=== PATIENT | female | born 1970 | race Caucasian/White ===

== ENCOUNTER 2018-08-19 09:19 | Emergency (ER) | payer OTHER ==
[2018-08-19] MEDS ORDERED: NA CHLORIDE 0.9% 1,000 ML ONE (09:50)
[2018-08-19] MEDS ORDERED: ADENOSINE 6 MG/ 2ML VIAL IV ONE (09:50)
[2018-08-19] MEDS ORDERED: METOPROLOL TARTRATE 5 MG/5 ML INJ IV ONE (09:57)
[2018-08-19 10:09] LABS: Absolute Lymphocytes (CBC) 1.8 K/uL (0.7-4.9); Basophils % 0.5 % (0-1.3); Eosinophils % 3.9 % (0-4.4); Hematocrit 43.4 % (36.0-45.0); Lymphocytes % 35.7 % (15.3-44.8); MPV 9.2 fL (7.6-11.3); Monocytes % 7.8 % (3.3-12.3); RBC Red Blood Cell Count 4.68 M/uL (3.86-4.86)
[2018-08-19 10:13] LABS: Protime INR 1.01
[2018-08-19 10:26] LABS: ALT/SGPT 19 U/L (12-78); AST/SGOT 16 U/L (15-37); Albumin 4.1 g/dL (3.4-5.0); Alkaline Phosphatase 72 U/L (45-117); BUN Blood Urea Nitrogen 14 mg/dL (7-18); Bicarbonate 25 mmol/L (21-32); Bilirubin Direct 0.2 mg/dL (0-0.2); Bilirubin Total 0.6 mg/dL (0.2-1.0); Glucose Level 117 mg/dL (74-106); Magnesium 2.1 mg/dL (1.8-2.4); NT PRO-BNP 26 pg/mL (<125); Potassium 3.9 mmol/L (3.5-5.1); Protein, Total 7.9 g/dL (6.4-8.2); Sodium Level 141 mmol/L (136-145); Troponin (Emerg Dept Use Only) < 0.02 ng/mL (0.0-0.045)
--- NOTE | 2018-08-19 10:27 | RAD REPORT ---
EXAM DESCRIPTION: RAD - Chest Single View - 08/19/2018 10:20 am CLINICAL HISTORY: Chest pain;Palpitations Chest pain. COMPARISON: CHEST PA AND LAT 2 VIEW dated 04/30/2012 FINDINGS: Portable technique limits examination quality. The lungs are grossly clear. The heart is normal in size. No displaced fractures. IMPRESSION: No acute intrathoracic process suspected.
--- NOTE | 2018-08-19 10:48 | ER ---
Nurse's Notes [facility] Name: Felicia Arizmendi Age: 48 yrs Sex: Female : 1970 Arrival Date: 08/19/2018 Time: 09:21 Bed 3 Private MD: Diagnosis: Supraventricular tachycardia;Chronic kidney disease, stage 3 (moderate) Presentation: 08/19 09:21 Presenting complaint: Sudden onset chest tightness, SOB, and palpitations while hb standing at work today at 0815. BP 116/62, HR 188. Transition of care: patient was not received from another setting of care. Onset of symptoms was August 19, 2018. Risk Assessment: Do you want to hurt yourself or someone else? Patient reports no desire to harm self or others. Care prior to arrival: None. 09:21 Method Of Arrival: Ambulatory hb 09:21 Acuity: EVE 2 hb 09:35 Acuity: EVE 1 sv 10:00 Initial Sepsis Screen: Does the patient meet any 2 criteria? HR > 90 bpm. No. Patient's sv initial sepsis screen is negative. Does the patient have a suspected source of infection? No. Patient's initial sepsis screen is negative. 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 - Hysterectomy sv Historical: - Allergies: 09:23 No Known Allergies; hb - Home Meds: 10:09 B complex-minerals Oral [Active]; duloxetine 60 mg Oral cpDR 1 cap once daily [Active]; jr8 hylands and magnesium [Active]; ranitidine HCl 150 mg Oral tab 1 tab once daily [Active]; trubiotics, claritin, [Active]; Zinc Sulfate Oral [Active]; oxybutynin chloride 10 mg Oral tr24 1 tab once daily [Active]; alprazolam 0.5 mg Oral tab as needed [Active]; zyzal [Active]; biotin oral oral [Active]; simvastatin 20 mg Oral tab 1 tab once daily [Active]; phentermine 37.5 mg oral tab 1 tab once daily [Active]; - PMHx: 09:58 bladder control; GERD; hot flashes; shingles; sv - PSHx: 09:58 Tubal ligation; Uterine ablation; Colpsoscopy; Cryo sx; Hysterectomy; LEEP procedure; sv - Immunization history:: Adult Immunizations up to date. - Social history:: Smoking status: Patient/guardian denies using tobacco. - Ebola Screening: : No symptoms or risks identified at this time. Screenin:01 Abuse screen: Denies threats or abuse. Denies injuries from another. Nutritional sv screening: No deficits noted. Tuberculosis screening: No symptoms or risk factors identified. Fall Risk None identified. Assessment: 09:39 General: Appears in no apparent distress. uncomfortable, well groomed, well developed, sv Behavior is cooperative, appropriate for age, anxious. Pain: Denies pain. Neuro: Level of Consciousness is awake, alert, obeys commands, Oriented to person, place, time, situation, Moves all extremities. Full function Gait is steady. Cardiovascular: Patient's skin is warm and dry. Rhythm is SVT. Cardiovascular: Reports palpitations, shortness of breath, chest tightness. Respiratory: Airway is patent Respiratory effort is even, unlabored, Respiratory pattern is regular, symmetrical. Derm: Skin is pink, warm \T\ dry. 10:10 Reassessment: Patient appears in no apparent distress at this time. Patient and/or sv family updated on plan of care and expected duration. Pain level reassessed. Patient is alert, oriented x 3, equal unlabored respirations, skin warm/dry/pink. Patient states symptoms have improved. 10:58 Reassessment: pt ambulatory even steady gait to the restroom, and back in exam room at this time, no problems encountered, pt reports feeling good, pt to dispo to home at this time. Vital Signs: 09:22 BP 108 / 85; Pulse 176; Resp 16; Pulse Ox 97% on R/A; Weight 83.46 kg; Height 5 ft. 6 hb in. (167.64 cm); Pain 5/10; 09:59 BP 115 / 84; Pulse 84 MON; Resp 18; Pulse Ox 100% on R/A; sv 11:00 BP 111 / 77; Pulse 77 MON; Resp 16; Pulse Ox 99% on R/A; sv 09:22 Body Mass Index 29.70 (83.46 kg, 167.64 cm) hb 09:59 Sinus Rhythm sv 11:00 Sinus Rhythm sv ED Course: 09:21 Patient arrived in ED. hb 09:22 Triage completed. hb 09:23 Arm band placed on. hb 09:24 Mike Crane PA is PHCP. jr8 09:24 Otto Leos MD is Attending Physician. jr8 09:30 monitor worker on. Pulse ox on. NIBP on. sv 09:35 Inserted saline lock: 20 gauge in left antecubital area, using aseptic technique. sv ,using aseptic technique. done by Denise LUTZ Blood collected. 09:36 Aparna Gallegos RN is Primary Nurse. sv 09:39 Assist provider with cardioversion for treatment of SVT Set up for procedure. Performed sv by Miek GONZALEZ Monitored with cardiac cath technician, pulse ox, Post procedure rhythm is sinus rhythm. Patient tolerated well. Adenosine used.. Oxygen administration via nasal cannula \T\ 2L/min. 10:01 Patient has correct armband on for positive identification. Bed in low position. Call sv light in reach. 10:15 X-ray(s) taken. sv 10:20 Awaiting lab results, Awaiting radiology results. sv 10:20 XRAY Chest (1 view) In Process Unspecified. EDMS 10:47 Jelani Rey MD is Referral Physician. jr8 10:47 Elissa Yap MD is Referral Physician. jr8 11:08 IV discontinued, intact, bleeding controlled, No redness/swelling at site. Pressure sv dressing applied. Administered Medications: 09:39 Drug: Adenosine 12 mg Route: IVP; Site: left antecubital; tr5 09:58 Follow up: Response: No adverse reaction sv 09:41 Drug: Lopressor 5 mg Route: IVP; Site: left antecubital; tr5 09:58 Follow up: Response: No adverse reaction sv Outcome: 10:48 Discharge ordered by . jr8 11:08 Discharged to home ambulatory, with family. sv 11:08 Condition: stable 11:08 Discharge instructions given to patient, family, Instructed on discharge instructions, follow up and referral plans. Demonstrated understanding of instructions, follow-up care. 11:08 Patient left the ED. sv Signatures: Dispatcher [employer] EDNE Aparna Gallegos RN RN sv Gay, Steven, RN RN sg Roszak, Josh, PA PA jr8 Denise Rodriguez RN RN hb Rodriguez, Tommie, RN RN tr5 Corrections: (The following items were deleted from the chart) 09:25 09:22 BP 108 / 85; Pulse 17bpm; Resp 16bpm; Pulse Ox 97% RA; 83.46 kg; Height 5 ft. 6 hb in.; BMI: 29.7; Pain 5/10; hb
--- NOTE | 2018-08-19 10:48 | EDPHYS ---
Physician Documentation [facility] Name: Felicia Arizmendi Age: 48 yrs Sex: Female : 1970 Arrival Date: 08/19/2018 Time: 09:21 Bed 3 Private MD: ED Physician Otto Leos HPI: 08/19 09:49 This 48 yrs old Female presents to ER via Ambulatory with complaints of jr8 Palpitations, Chest Tightness, Shortness Of Breath. 09:49 The patient presents with a history of heart racing. Context: The symptoms occur at jr8 rest. Onset: The symptoms/episode began/occurred acutely, today. Duration: The patient or guardian reports a single episode, that is still ongoing. Modifying factors: The symptoms are aggravated by nothing. The symptoms are alleviated by nothing. Associated signs and symptoms: Pertinent positives: SOB, near-syncope. Severity of symptoms: At their worst the symptoms were moderate in the emergency department the symptoms are unchanged. The patient has not experienced similar symptoms in the past. The patient has not recently seen a physician. Patient stated while at work started to feel dizzy and had palpitations that made her feel like she was going to pass out. 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 Stated that her heart rate was 180. 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 - Hysterectomy sv Historical: - Allergies: 09:23 No Known Allergies; hb - Home Meds: 10:09 B complex-minerals Oral [Active]; duloxetine 60 mg Oral cpDR 1 cap once daily [Active]; jr8 hylands and magnesium [Active]; ranitidine HCl 150 mg Oral tab 1 tab once daily [Active]; trubiotics, claritin, [Active]; Zinc Sulfate Oral [Active]; oxybutynin chloride 10 mg Oral tr24 1 tab once daily [Active]; alprazolam 0.5 mg Oral tab as needed [Active]; zyzal [Active]; biotin oral oral [Active]; simvastatin 20 mg Oral tab 1 tab once daily [Active]; phentermine 37.5 mg oral tab 1 tab once daily [Active]; - PMHx: 09:58 bladder control; GERD; hot flashes; shingles; sv - PSHx: 09:58 Tubal ligation; Uterine ablation; Colpsoscopy; Cryo sx; Hysterectomy; LEEP procedure; sv - Immunization history:: Adult Immunizations up to date. - Social history:: Smoking status: Patient/guardian denies using tobacco. - Ebola Screening: : No symptoms or risks identified at this time. ROS: 09:49 Eyes: Negative for injury, pain, redness, and discharge, ENT: Negative for injury, jr8 pain, and discharge, Neck: Negative for injury, pain, and swelling, Abdomen/GI: Negative for abdominal pain, nausea, vomiting, diarrhea, and constipation, Back: Negative for injury and pain, MS/Extremity: Negative for injury and deformity, Skin: Negative for injury, rash, and discoloration. 09:49 Cardiovascular: Positive for palpitations, Negative for chest pain, edema, orthopnea. 09:49 Respiratory: Positive for shortness of breath. 09:49 Neuro: Positive for dizziness, near syncope, Negative for altered mental status, gait disturbance, headache, hearing loss, loss of consciousness, numbness, seizure activity, speech changes, syncope, tingling, tinnitus, tremor, visual changes, weakness. Exam: 09:49 Eyes: Pupils equal round and reactive to light, extra-ocular motions intact. Lids and jr8 lashes normal. Conjunctiva and sclera are non-icteric and not injected. Cornea within normal limits. Periorbital areas with no swelling, redness, or edema. ENT: Nares patent. No nasal discharge, no septal abnormalities noted. Tympanic membranes are normal and external auditory canals are clear. Oropharynx with no redness, swelling, or masses, exudates, or evidence of obstruction, uvula midline. Mucous membranes moist. Neck: Trachea midline, no thyromegaly or masses palpated, and no cervical lymphadenopathy. Supple, full range of motion without nuchal rigidity, or vertebral point tenderness. No Meningismus. Respiratory: Lungs have equal breath sounds bilaterally, clear to auscultation and percussion. No rales, rhonchi or wheezes noted. No increased work of breathing, no retractions or nasal flaring. Abdomen/GI: Soft, non-tender, with normal bowel sounds. No distension or tympany. No guarding or rebound. No evidence of tenderness throughout. Back: No spinal tenderness. No costovertebral tenderness. Full range of motion. Skin: Warm, dry with normal turgor. Normal color with no rashes, no lesions, and no evidence of cellulitis. MS/ Extremity: Pulses equal, no cyanosis. Neurovascular intact. Full, normal range of motion. Neuro: Awake and alert, GCS 15, oriented to person, place, time, and situation. Cranial nerves II-XII grossly intact. Motor strength 5/5 in all extremities. Sensory grossly intact. Cerebellar exam normal. Normal gait. 09:49 Cardiovascular: Rate: tachycardic, actual rate is 170 bpm, Rhythm: irregular, Pulses: Pulses are 1+ in right radial artery and left radial artery. Edema: is not appreciated, JVD: is not appreciated. 09:49 ECG was reviewed by the Attending Physician. 09:53 ECG was reviewed by the Attending Physician. jr8 Vital Signs: 09:22 BP 108 / 85; Pulse 176; Resp 16; Pulse Ox 97% on R/A; Weight 83.46 kg; Height 5 ft. 6 hb in. (167.64 cm); Pain 5/10; 09:59 BP 115 / 84; Pulse 84 MON; Resp 18; Pulse Ox 100% on R/A; sv 11:00 BP 111 / 77; Pulse 77 MON; Resp 16; Pulse Ox 99% on R/A; sv 09:22 Body Mass Index 29.70 (83.46 kg, 167.64 cm) hb 09:59 Sinus Rhythm sv 11:00 Sinus Rhythm sv MDM: 09:24 Patient medically screened. jr8 10:43 Data reviewed: vital signs, nurses notes, lab test result(s), EKG, radiologic studies, jr8 plain films. Data interpreted: Pulse oximetry: on room air is 100 %. Interpretation: normal. Counseling: I had a detailed discussion with the patient and/or guardian regarding: the historical points, exam findings, and any diagnostic results supporting the discharge/admit diagnosis, lab results, radiology results, the need for outpatient follow up, a break off worker, Nephrology , to return to the emergency department if symptoms worsen or persist or if there are any questions or concerns that arise at home. Response to treatment: the patient's symptoms have resolved after treatment. ED course: Discussed with patient that her GFR is decreased. Recommended f/u with Oyster Bed Worker at this point as this is not the first time this has been brought to her attention. Otherwise No other acute lab abnormalities. Patient will also be following up with Cardiology in next day or so for SVT episode. Discussed needing to stop the dietary supplements and caffeine for now. No BB use at this time. If worse to come back. Patient good with plan and will f/u . 08/19 09:45 Order name: Basic Metabolic Panel; Complete Time: 10:32 tr5 08/19 09:45 Order name: CBC with Diff; Complete Time: 10:25 tr5 08/19 09:45 Order name: LFT's; Complete Time: 10:32 tr5 08/19 09:45 Order name: Magnesium; Complete Time: 10:32 tr5 08/19 09:45 Order name: NT PRO-BNP; Complete Time: 10:32 tr5 08/19 09:45 Order name: PT-INR; Complete Time: 10:25 tr5 08/19 09:24 Order name: EKG - Nurse/Tech; Complete Time: 09:59 jr8 08/19 09:24 Order name: EKG; Complete Time: 09:25 jr8 08/19 09:45 Order name: Troponin (emerg Dept Use Only); Complete Time: 10:32 tr5 08/19 09:45 Order name: XRAY Chest (1 view); Complete Time: 10:32 tr5 08/19 09:45 Order name: EKG; Complete Time: 09:46 tr5 08/19 09:45 Order name: Cardiac monitoring; Complete Time: 09:59 tr5 08/19 09:45 Order name: EKG - Nurse/Tech; Complete Time: 09:59 tr5 08/19 09:45 Order name: IV Saline Lock; Complete Time: 09:59 tr5 08/19 09:45 Order name: Labs collected and sent; Complete Time: 09:59 tr5 08/19 09:45 Order name: O2 Per Protocol; Complete Time: 09:59 tr5 08/19 09:45 Order name: O2 Sat Monitoring; Complete Time: 09:59 tr5 EC:49 Rate is 165 beats/min. Rhythm is irregular, SVT. QRS [place] is Normal. QRS interval is jr8 normal at 98 msec. No Q waves. T waves are Normal. No ST changes noted. Clinical impression: SVT. Interpreted by me. Reviewed by me. 09:53 Rate is 88 beats/min. Rhythm is regular, Normal Sinus Rhythm. QRS [place] is Normal. [place] jr8 interval is normal at 130 msec. QRS interval is normal at 66 msec. QT interval is normal at 406 msec. No Q waves. T waves are Flattened in leads II, III, aVF, V3, V4, V5, V6. No ST changes noted. Clinical impression: NSR w/ Non-specific ST/T Changes. Interpreted by me. Reviewed by me. Administered Medications: 09:39 Drug: Adenosine 12 mg Route: IVP; Site: left antecubital; tr5 09:58 Follow up: Response: No adverse reaction sv 09:41 Drug: Lopressor 5 mg Route: IVP; Site: left antecubital; tr5 09:58 Follow up: Response: No adverse reaction sv Disposition: 15:49 Co-signature as Attending Physician, Otto Leos MD. rn Disposition: 08/19/18 10:48 Discharged to Home. Impression: Supraventricular tachycardia, Chronic kidney disease, stage 3 (moderate). - Condition is Stable. - Discharge Instructions: Pharmaceutical Cardioversion, Paroxysmal Supraventricular Tachycardia, Chronic Kidney Disease, Adult. - Work release form, Medication Reconciliation Form, Thank You Letter, Antibiotic Education, Prescription Opioid Use form. - Follow up: Jelani Rey MD; When: 24 Hours; Reason: Recheck today's complaints, Continuance of care, Re-evaluation by your physician. Follow up: Elissa Yap MD; When: 2 - 3 days; Reason: Recheck today's complaints, Continuance of care, Re-evaluation by your physician. - Problem is new. - Symptoms have improved. Signatures: Dispatcher [employer] Aparna Dave RN RN sv Nieto, Roman, MD MD rn Roszak, Josh, PA PA jr8 Denise Rodriguez RN RN hb Rodriguez, Tommie RN RN tr5 Corrections: (The following items were deleted from the chart) 11:08 10:48 08/19/2018 10:48 Discharged to Home. Impression: Supraventricular tachycardia; sv Chronic kidney disease, stage 3 (moderate). Condition is Stable. Forms are Medication Reconciliation Form, Thank You Letter, Antibiotic Education, Prescription Opioid Use. Follow up: Jelani Rey; When: 24 Hours; Reason: Recheck today's complaints, Continuance of care, Re-evaluation by your physician. Follow up: Elissa Yap; When: 2 - 3 days; Reason: Recheck today's complaints, Continuance of care, Re-evaluation by your physician. Problem is new. Symptoms have improved. jr8
--- NOTE | 2018-08-19 11:07 | EKG ---
Test Date: 2018-08-19 Test Time: 09:30:47 Academic Hospitalist: RAGINI MEASUREMENT RESULTS: Intervals: Rate: 165 CT: QRSD: 98 QT: 272 QTc: 450 [place]: P: CT: QRS: 35 T: -29 INTERPRETIVE STATEMENTS: Supraventricular tachycardia Nonspecific ST and T wave abnormality Abnormal ECG Compared to ECG 04/30/2012 11:53:19 ST (T wave) deviation now present Sinus rhythm no longer present T-wave abnormality no longer present Electronically Signed On 08-19-18 11:06:44 CDT by Onel Mo
--- NOTE | 2018-08-19 11:07 | EKG ---
Test Date: 2018-08-19 Test Time: 09:45:37 Senior Report Developer: RAGINI MEASUREMENT RESULTS: Intervals: Rate: 88 AL: 130 QRSD: 66 QT: 336 QTc: 406 [place]: P: 48 AL: 130 QRS: 17 T: 12 INTERPRETIVE STATEMENTS: Normal sinus rhythm Nonspecific ST and T wave abnormality Abnormal ECG Compared to ECG 08/19/2018 09:30:47 Supraventricular tachycardia no longer present ST (T wave) deviation still present Electronically Signed On 08-19-18 11:06:41 CDT by Onel Mo
== END 2018-08-19 11:08 | disposition home or self-care (01) ==
LOC: ER 09:19
DX: I47.1 Supraventricular tachycardia (principal); N18.3 Chronic kidney disease, stage 3 (moderate); K21.9 Gastro-esophageal reflux disease without esophagitis
CPT/HCPCS: 36415; 71045; 80048; 80076; 83735; 83880; 84484; 85025; 85610; 92960; 93005; 96374; 96375; 99291; J0153; J7030

== ENCOUNTER 2023-03-14 21:01 | Emergency (ER) | payer BC ==
--- OUTSIDE RECORDS SUMMARY | 2023-03-14 21:04 | XMS REPORT | Continuity of Care Document ---
Author Name Unknown Address [address] [place] [address] [facility] thconnect Address [address] [place] [address] Care Team Providers Care Funeral Arranger Name Role Phone Tracy Dumas Primary Care Physician [phone] Huseyin Hannah Attending Clinician Unavailable Valentina De La Fuente Attending Clinician [phone] Sarah Leung MD Attending Clinician [phone] Doctor Unassigned, Moquino Attending Clinician U navailable [email or web address] Attending Clinician Unavaila SARAH Meza Attending Clinician UnavailVALENTINA [place] Attending Clinician Unavailable Anna Baca Attending Clinician [phone] ANNA CRAWFORD Attending Clinician Unavailable Saritha Doss Admitting Clinician Unavailable [email or web address] Admitting Clinician Unavailjenelle aldridge Payers Payer Name Policy Type Policy Number Effective Date Expirati on Date Source [employer]ETNA [id number] 2020 00:00:00 Problems Condition Name Condition Details Condition Category Status Onset Date Resolution Date Last Treatment Date Treating Clinician Comments Source No known active problems No known active problems Disease [facility] Allergies, Adverse Reactions, Alerts Allergy Name Allergy Type Status Severity Reaction(s) Onset Date Inactive Date Treating Clinician Comments Source Amoxicil jeanna Propensi ty to adverse reaction s Active Rash 03-15 00:00: 00 [facility] cephalex in DA Active [place] 03-01 00:00: 00 [facility] amoxicil jeanna DA Active [place] 03-01 00:00: 00 [facility] cef[facility] [place] 03-01 00:00: 00 [facility] cephalex in DA Active [place] RASH, NAUSEA 03-01 00:00: 00 [facility] amoxicil jeanna DA Active [place] RASH, NAUSEA 03-01 00:00: 00 [facility] cefazoli n DA Active [place] RASH, NAUSEA 03-01 00:00: 00 [facility] No Known Allergie s DA Active U 02-27 00:00: 00 [facility] code[facility] DA Active [place] 02-27 00:00: 00 [facility] No Known Allergie s DA Active U 02-27 00:00: 00 [facility] codeine DA Active [place] UNKNOWN 02-27 00:00: 00 [facility] Social History Social Habit Start Date Stop Date Quantity Comments Source Exposure to SARS-CoV-2 (event) 2021-07-01 00:00:00 2021-07-11 12:25:00 Not sure [facility] Alcohol intake 2021-07-11 00:00:00 2021-07-11 00:00:00 Lifetime non-drinker (finding) [facility] Tobacco use and exposure 2021-06-06 00:00:00 2021-06-06 00:00:00 Smokeless tobacco non-user [facility] Sex Assigned At 1970 00:00:00 1970 00:00:00 [facility] Smoking Status Start Date Stop Date Source Never smoked tobacco [facility] Medications Ordered Medication Name Filled Medication Name Start Date Stop Date Current Medication? Ordering Clinician Indication Dosage Frequency Signature (SIG) Comments Components Source MELOXICAM 7.5 mg tablet 07-30 00:00: 00 Yes [id number] TAKE 1 TABLET BY MOUTH EVERY DAY [facility] MELOXICAM 7.5 mg tablet 2021-02 00:00: 00 Yes [id number] TAKE 1 TABLET BY MOUTH EVERY DAY [facility] MELOXICAM 7.5 mg tablet 2021-02 00:00: 00 Yes [id number] TAKE 1 TABLET BY MOUTH EVERY DAY [facility] MELOXICAM 7.5 mg tablet 2021-02 00:00: 00 Yes [id number] TAKE 1 TABLET BY MOUTH EVERY DAY [facility] MELOXICAM 7.5 mg tablet 2021-02 00:00: 00 07-30 00:00 :00 No [id number] TAKE 1 TABLET BY MOUTH EVERY DAY [facility] MELOXICAM 7.5 mg tablet 2021-02 00:00: 00 Yes [id number] 7.5mg TAKE 1 TABLET BY MOUTH DAILY [facility] MELOXICAM 7.5 mg tablet 2021-02 00:00: 00 Yes [id number] 7.5mg TAKE 1 TABLET BY MOUTH DAILY [facility] MELOXICAM 7.5 mg tablet 2021-02 00:00: 00 02-04 00:00 :00 No [id number] 7.5mg TAKE 1 TABLET BY MOUTH DAILY [facility] MELOXICAM 7.5 mg tablet 09-25 00:00: 00 Yes [id number] 7.5mg TAKE 1 TABLET BY MOUTH DAILY [facility] MELOXICAM 7.5 mg tablet 09-25 00:00: 00 12-25 00:00 :00 No [id number] 7.5mg TAKE 1 TABLET BY MOUTH DAILY [facility] DICLOFENAC 75 mg EC tablet 08-16 00:00: 00 Yes [id number] TAKE 1 TABLET BY MOUTH TWICE DA[facility] tablet 0 08-16 00:00: 00 Yes [id number] TAKE 1 TABLET BY MOUTH TWICE DAILY WITH MEALS [facility] DICLOFE[facility] 75 mg EC tablet 0 08-16 00:00: 00 Yes [id number] TAKE 1 TABLET BY MOUTH TWICE DAILY WITH MEALS [facility] DICLOFE[facility] 75 mg EC tablet 0 08-16 00:00: 00 Yes [id number] TAKE 1 TABLET BY MOUTH TWICE DAILY WITH MEALS [facility] DICLOFE[facility] 75 mg EC tablet 0 08-16 00:00: 00 Yes [id number] TAKE 1 TABLET BY MOUTH TWICE DAILY WITH MEALS [facility] DICLOFENAC 75 mg EC tablet 0 08-16 00:00: 00 Yes [id number] TAKE 1 TABLET BY MOUTH TWICE DAILY WITH MEALS [facility] DICLOFE[facility]C 75 mg EC tablet 0 08-16 00:00: 00 Yes [id number] TAKE 1 TABLET BY MOUTH TWICE DAILY WITH MEALS [facility] DICLOFENAC 75 mg EC tablet 0 08-16 00:00: 00 Yes [id number] TAKE 1 TABLET BY MOUTH TWICE DAILY WITH MEALS [facility] DICLOFENAC 75 mg EC tablet 0 08-16 00:00: 00 Yes [id number] TAKE 1 TABLET BY MOUTH TWICE DAILY WITH MEALS [facility] DICLOFENAC 75 mg EC tablet 0 08-09 00:00: 00 Yes [id number] TAKE 1 TABLET BY MOUTH TWICE DAILY WITH MEALS [facility] DICLOFENAC 75 mg EC tablet 0 08-09 00:00: 00 08-16 00:00 :00 No [id number] TAKE 1 TABLET BY MOUTH TWICE DAILY WITH MEALS [facility] diclofenac 75 mg EC tablet 0 07-11 00:00: 00 08-11 04:59 :00 No [id number] 75mg Take 1 tablet by mouth 2 (two) times daily with meals for 30 days. [facility] diclofenac 75 mg EC tablet 0 07-11 00:00: 00 08-11 04:59 :00 No [id number] 75mg Take 1 tablet by mouth 2 (two) times daily with meals for 30 days. [facility] diclofenac 75 mg EC tablet 07-11 00:00: 00 08-09 00:00 :00 No [id number] 75mg Take 1 tablet by mouth 2 (two) times daily with meals for 30 days. [facility] MELOXICAM 7.5 mg tablet 06-18 00:00: 00 Yes [id number] 7.5mg TAKE 1 TABLET BY MOUTH DAILY [facility] MELOXICAM 7.5 mg tablet 06-18 00:00: 00 Yes [id number] 7.5mg TAKE 1 TABLET BY MOUTH DAILY [facility] MELOXICAM 7.5 mg tablet 06-18 00:00: 00 Yes [id number] 7.5mg TAKE 1 TABLET BY MOUTH DAILY [facility] MELOXICAM 7.5 mg tablet 06-18 00:00: 00 Yes [id number] 7.5mg TAKE 1 TABLET BY MOUTH DAILY [facility] MELOXICAM 7.5 mg tablet 06-18 00:00: 00 09-25 00:00 :00 No [id number] 7.5mg TAKE 1 TABLET BY MOUTH DAILY [facility] mirabegron (MYRBETRIQ) 50 mg tablet 03-15 11:15: 29 Yes Take by mouth. [facility] liraglutide , weight loss, (SAXENDA) 3 mg/0.5 mL (18 mg/3 mL) PnIj 03-15 11:15: 29 Yes inject under the skin. [facility] cholecalcif kiki, vitamin D3, (D3-2000 ORAL) 03-15 11:15: 29 Yes Take by mouth. [facility] Biotin 2,500 mcg Cap 03-15 11:15: 29 Yes Take by mouth. [facility] BETAINE HCL ORAL 03-15 11:15: 29 Yes Take by mouth. [facility] multivitami n (DAILY VITAMIN ORAL) 03-15 11:15: 29 Yes Take by mouth. [facility] aspirin 81 mg chewable tablet 03-15 11:15: 29 Yes 81mg Take 81 mg by mouth daily. [facility] B-complex with vitamin C (B COMPLEX-C STRESS FORMULA ORAL) 03-15 11:15: 29 Yes Take by mouth. [facility] zinc sulfate (ZINC-15 ORAL) 03-15 11:15: 29 Yes Take by mouth. [facility] levocetiriz ine dihydrochlo ride (XYZAL ORAL) 03-15 11:15: 29 Yes Take by mouth. [facility] pseudoephed rine HCl (WAL-PHED D ORAL) 03-15 11:15: 29 Yes Take by mouth. [facility] oxymetazoli ne HCl (NOSE SPRAY NASAL) 03-15 11:15: 29 Yes Use in each nostril. [facility] elderberry fruit (ELDERBERRY ORAL) 03-15 11:15: 29 Yes Take by mouth. [facility] hydrocortis one-iodoqui nL-aloe2 (ALCORTIN A) 2-1-1 % Gel 03-15 11:15: 29 Yes Apply to area(s). [facility] ondansetron 4 mg tablet 03-15 11:15: 29 Yes 4mg Take 4 mg by mouth every 8 (eight) hours as needed. [facility] mirabegron (MYRBETRIQ) 50 mg tablet 03-15 11:15: 29 Yes Take by mouth. [facility] liraglutide , weight loss, (SAXENDA) 3 mg/0.5 mL (18 mg/3 mL) PnIj 03-15 11:15: 29 Yes inject under the skin. [facility] cholecalcif kiki, vitamin D3, (D3-2000 ORAL) 03-15 11:15: 29 Yes Take by mouth. [facility] Biotin 2,500 mcg Cap 03-15 11:15: 29 Yes Take by mouth. [facility] BETAINE HCL ORAL 03-15 11:15: 29 Yes Take by mouth. [facility] multivitami n (DAILY VITAMIN ORAL) 03-15 11:15: 29 Yes Take by mouth. [facility] aspirin 81 mg chewable tablet 03-15 11:15: 29 Yes 81mg Take 81 mg by mouth daily. [facility] B-complex with vitamin C (B COMPLEX-C STRESS FORMULA ORAL) 03-15 11:15: 29 Yes Take by mouth. [facility] zinc sulfate (ZINC-15 ORAL) 03-15 11:15: 29 Yes Take by mouth. [facility] levocetiriz ine dihydrochlo ride (XYZAL ORAL) 03-15 11:15: 29 Yes Take by mouth. [facility] pseudoephed rine HCl (WAL-PHED D ORAL) 03-15 11:15: 29 Yes Take by mouth. [facility] oxymetazoli ne HCl (NOSE SPRAY NASAL) 03-15 11:15: 29 Yes Use in each nostril. [facility] elderberry fruit (ELDERBERRY ORAL) 03-15 11:15: 29 Yes Take by mouth. [facility] hydrocortis one-iodoqui nL-aloe2 (ALCORTIN A) 2-1-1 % Gel 03-15 11:15: 29 Yes Apply to area(s). [facility] ondansetron 4 mg tablet 03-15 11:15: 29 Yes 4mg Take 4 mg by mouth every 8 (eight) hours as needed. [facility] mirabegron (MYRBETRIQ) 50 mg tablet 03-15 11:15: 29 Yes Take by mouth. [facility] liraglutide , weight loss, (SAXENDA) 3 mg/0.5 mL (18 mg/3 mL) PnIj 03-15 11:15: 29 Yes inject under the skin. [facility] cholecalcif kiki, vitamin D3, (D3-2000 ORAL) 03-15 11:15: 29 Yes Take by mouth. [facility] Biotin 2,500 mcg Cap 03-15 11:15: 29 Yes Take by mouth. [facility] BETAINE HCL ORAL 03-15 11:15: 29 Yes Take by mouth. [facility] multivitami n (DAILY VITAMIN ORAL) 03-15 11:15: 29 Yes Take by mouth. [facility] aspirin 81 mg chewable tablet 03-15 11:15: 29 Yes 81mg Take 81 mg by mouth daily. [facility] B-complex with vitamin C (B COMPLEX-C STRESS FORMULA ORAL) 03-15 11:15: 29 Yes Take by mouth. [facility] zinc sulfate (ZINC-15 ORAL) 03-15 11:15: 29 Yes Take by mouth. [facility] levocetiriz ine dihydrochlo ride (XYZAL ORAL) 03-15 11:15: 29 Yes Take by mouth. [facility] pseudoephed rine HCl (WAL-PHED D ORAL) 03-15 11:15: 29 Yes Take by mouth. [facility] oxymetazoli ne HCl (NOSE SPRAY NASAL) 03-15 11:15: 29 Yes Use in each nostril. [facility] fruit (ELDERBERRY ORAL) 03-15 11:15: 29 Yes Take by mouth. [facility] hydrocortis one-iodoqui nL-aloe2 (ALCORTIN A) 2-1-1 % Gel 03-15 11:15: 29 Yes Apply to area(s). [facility] ondansetron 4 mg tablet 03-15 11:15: 29 Yes 4mg Take 4 mg by mouth every 8 (eight) hours as needed. [facility] mirabegron (MYRBETRIQ) 50 mg tablet 03-15 11:15: 29 Yes Take by mouth. [facility] liraglutide , weight loss, (SAXENDA) 3 mg/0.5 mL (18 mg/3 mL) PnIj 03-15 11:15: 29 Yes inject under the skin. [facility] cholecalcif kiki, vitamin D3, (D3-2000 ORAL) 03-15 11:15: 29 Yes Take by mouth. [facility] Biotin 2,500 mcg Cap 03-15 11:15: 29 Yes Take by mouth. [facility] BETAINE HCL ORAL 03-15 11:15: 29 Yes Take by mouth. [facility] multivitami n (DAILY VITAMIN ORAL) 03-15 11:15: 29 Yes Take by mouth. [facility] aspirin 81 mg chewable tablet 03-15 11:15: 29 Yes 81mg Take 81 mg by mouth daily. [facility] B-complex with vitamin C (B COMPLEX-C STRESS FORMULA ORAL) 03-15 11:15: 29 Yes Take by mouth. [facility] zinc sulfate (ZINC-15 ORAL) 03-15 11:15: 29 Yes Take by mouth. [facility] levocetiriz ine dihydrochlo ride (XYZAL ORAL) 03-15 11:15: 29 Yes Take by mouth. [facility] pseudoephed rine HCl (WAL-PHED D ORAL) 03-15 11:15: 29 Yes Take by mouth. [facility] oxymetazoli ne HCl (NOSE SPRAY NASAL) 03-15 11:15: 29 Yes Use in each nostril. [facility] elderberry fruit (ELDERBERRY ORAL) 03-15 11:15: 29 Yes Take by mouth. [facility] hydrocortis one-iodoqui nL-aloe2 (ALCORTIN A) 2-1-1 % Gel 03-15 11:15: 29 Yes Apply to area(s). [facility] ondansetron 4 mg tablet 03-15 11:15: 29 Yes 4mg Take 4 mg by mouth every 8 (eight) hours as needed. [facility] mirabegron (MYRBETRIQ) 50 mg tablet 03-15 11:15: 29 Yes Take by mouth. [facility] liraglutide , weight loss, (SAXENDA) 3 mg/0.5 mL (18 mg/3 mL) PnIj 03-15 11:15: 29 Yes inject under the skin. [facility] cholecalcif kiki, vitamin D3, (D3-2000 ORAL) 03-15 11:15: 29 Yes Take by mouth. [facility] Biotin 2,500 mcg Cap 03-15 11:15: 29 Yes Take by mouth. [facility] BETAINE HCL ORAL 03-15 11:15: 29 Yes Take by mouth. [facility] multivitami n (DAILY VITAMIN ORAL) 03-15 11:15: 29 Yes Take by mouth. [facility] aspirin 81 mg chewable tablet 03-15 11:15: 29 Yes 81mg Take 81 mg by mouth daily. [facility] B-complex with vitamin C (B COMPLEX-C STRESS FORMULA ORAL) 03-15 11:15: 29 Yes Take by mouth. [facility] zinc sulfate (ZINC-15 ORAL) 03-15 11:15: 29 Yes Take by mouth. [facility] levocetiriz ine dihydrochlo ride (XYZAL ORAL) 03-15 11:15: 29 Yes Take by mouth. [facility] pseudoephed rine HCl (WAL-PHED D ORAL) 03-15 11:15: 29 Yes Take by mouth. [facility] oxymetazoli ne HCl (NOSE SPRAY NASAL) 03-15 11:15: 29 Yes Use in each nostril. [facility] elderberry fruit (ELDERBERRY ORAL) 03-15 11:15: 29 Yes Take by mouth. [facility] hydrocortis one-iodoqui nL-aloe2 (ALCORTIN A) 2-1-1 % Gel 03-15 11:15: 29 Yes Apply to area(s). [facility] ondansetron 4 mg tablet 03-15 11:15: 29 Yes 4mg Take 4 mg by mouth every 8 (eight) hours as needed. [facility] mirabegron (MYRBETRIQ) 50 mg tablet 03-15 11:15: 29 Yes Take by mouth. [facility] liraglutide , weight loss, (SAXENDA) 3 mg/0.5 mL (18 mg/3 mL) PnIj 03-15 11:15: 29 Yes inject under the skin. [facility] cholecalcif kiki, vitamin D3, (D3-2000 ORAL) 03-15 11:15: 29 Yes Take by mouth. [facility] Biotin 2,500 mcg Cap 03-15 11:15: 29 Yes Take by mouth. [facility] BETAINE HCL ORAL 03-15 11:15: 29 Yes Take by mouth. [facility] multivitami n (DAILY VITAMIN ORAL) 03-15 11:15: 29 Yes Take by mouth. [facility] aspirin 81 mg chewable tablet 03-15 11:15: 29 Yes 81mg Take 81 mg by mouth daily. [facility] B-complex with vitamin C (B COMPLEX-C STRESS FORMULA ORAL) 03-15 11:15: 29 Yes Take by mouth. [facility] zinc sulfate (ZINC-15 ORAL) 03-15 11:15: 29 Yes Take by mouth. [facility] levocetiriz ine dihydrochlo ride (XYZAL ORAL) 03-15 11:15: 29 Yes Take by mouth. [facility] pseudoephed rine HCl (WAL-PHED D ORAL) 03-15 11:15: 29 Yes Take by mouth. [facility] oxymetazoli ne HCl (NOSE SPRAY NASAL) 03-15 11:15: 29 Yes Use in each nostril. [facility] elderberry fruit (ELDERBERRY ORAL) 03-15 11:15: 29 Yes Take by mouth. [facility] hydrocortis one-iodoqui nL-aloe2 (ALCORTIN A) 2-1-1 % Gel 03-15 11:15: 29 Yes Apply to area(s). [facility] ondansetron 4 mg tablet 03-15 11:15: 29 Yes 4mg Take 4 mg by mouth every 8 (eight) hours as needed. [facility] mirabegron (MYRBETRIQ) 50 mg tablet 03-15 11:15: 29 Yes Take by mouth. [facility] liraglutide , weight loss, (SAXENDA) 3 mg/0.5 mL (18 mg/3 mL) PnIj 03-15 11:15: 29 Yes inject under the skin. [facility] cholecalcif kiki, vitamin D3, (D3-2000 ORAL) 03-15 11:15: 29 Yes Take by mouth. [facility] Biotin 2,500 mcg Cap 03-15 11:15: 29 Yes Take by mouth. [facility] BETAINE HCL ORAL 03-15 11:15: 29 Yes Take by mouth. [facility] multivitami n (DAILY VITAMIN ORAL) 03-15 11:15: 29 Yes Take by mouth. [facility] aspirin 81 mg chewable tablet 03-15 11:15: 29 Yes 81mg Take 81 mg by mouth daily. [facility] B-complex with vitamin C (B COMPLEX-C STRESS FORMULA ORAL) 03-15 11:15: 29 Yes Take by mouth. [facility] zinc sulfate (ZINC-15 ORAL) 03-15 11:15: 29 Yes Take by mouth. [facility] levocetiriz ine dihydrochlo ride (XYZAL ORAL) 03-15 11:15: 29 Yes Take by mouth. [facility] pseudoephed rine HCl (WAL-PHED D ORAL) 03-15 11:15: 29 Yes Take by mouth. [facility] oxymetazoli ne HCl (NOSE SPRAY NASAL) 03-15 11:15: 29 Yes Use in each nostril. [facility] elderberry fruit (ELDERBERRY ORAL) 03-15 11:15: 29 Yes Take by mouth. [facility] hydrocortis one-iodoqui nL-aloe2 (ALCORTIN A) 2-1-1 % Gel 03-15 11:15: 29 Yes Apply to area(s). [facility] ondansetron 4 mg tablet 03-15 11:15: 29 Yes 4mg Take 4 mg by mouth every 8 (eight) hours as needed. [facility] mirabegron (MYRBETRIQ) 50 mg tablet 03-15 11:15: 29 Yes Take by mouth. [facility] liraglutide , weight loss, (SAXENDA) 3 mg/0.5 mL (18 mg/3 mL) PnIj 03-15 11:15: 29 Yes inject under the skin. [facility] cholecalcif kiki, vitamin D3, (D3-2000 ORAL) 03-15 11:15: 29 Yes Take by mouth. [facility] Biotin 2,500 mcg Cap 03-15 11:15: 29 Yes Take by mouth. [facility] BETAINE HCL ORAL 03-15 11:15: 29 Yes Take by mouth. [facility] multivitami n (DAILY VITAMIN ORAL) 03-15 11:15: 29 Yes Take by mouth. [facility] aspirin 81 mg chewable tablet 03-15 11:15: 29 Yes 81mg Take 81 mg by mouth daily. [facility] B-complex with vitamin C (B COMPLEX-C STRESS FORMULA ORAL) 03-15 11:15: 29 Yes Take by mouth. [facility] zinc sulfate (ZINC-15 ORAL) 03-15 11:15: 29 Yes Take by mouth. [facility] levocetiriz ine dihydrochlo ride (XYZAL ORAL) 03-15 11:15: 29 Yes Take by mouth. [facility] pseudoephed rine HCl (WAL-PHED D ORAL) 03-15 11:15: 29 Yes Take by mouth. [facility] oxymetazoli ne HCl (NOSE SPRAY NASAL) 03-15 11:15: 29 Yes Use in each nostril. [facility] elderberry fruit (ELDERBERRY ORAL) 03-15 11:15: 29 Yes Take by mouth. [facility] hydrocortis one-iodoqui nL-aloe2 (ALCORTIN A) 2-1-1 % Gel 03-15 11:15: 29 Yes Apply to area(s). [facility] ondansetron 4 mg tablet 03-15 11:15: 29 Yes 4mg Take 4 mg by mouth every 8 (eight) hours as needed. [facility] mirabegron (MYRBETRIQ) 50 mg tablet 03-15 11:15: 29 Yes Take by mouth. [facility] liraglutide , weight loss, (SAXENDA) 3 mg/0.5 mL (18 mg/3 mL) PnIj 03-15 11:15: 29 Yes inject under the skin. [facility] cholecalcif kiki, vitamin D3, (D3-2000 ORAL) 03-15 11:15: 29 Yes Take by mouth. [facility] Biotin 2,500 mcg Cap 03-15 11:15: 29 Yes Take by mouth. [facility] BETAINE HCL ORAL 03-15 11:15: 29 Yes Take by mouth. [facility] multivitami n (DAILY VITAMIN ORAL) 03-15 11:15: 29 Yes Take by mouth. [facility] aspirin 81 mg chewable tablet 03-15 11:15: 29 Yes 81mg Take 81 mg by mouth daily. [facility] B-complex with vitamin C (B COMPLEX-C STRESS FORMULA ORAL) 03-15 11:15: 29 Yes Take by mouth. [facility] zinc sulfate (ZINC-15 ORAL) 03-15 11:15: 29 Yes Take by mouth. [facility] levocetiriz ine dihydrochlo ride (XYZAL ORAL) 03-15 11:15: 29 Yes Take by mouth. [facility] pseudoephed rine HCl (WAL-PHED D ORAL) 03-15 11:15: 29 Yes Take by mouth. [facility] oxymetazoli ne HCl (NOSE SPRAY NASAL) 03-15 11:15: 29 Yes Use in each nostril. [facility] elderberry fruit (ELDERBERRY ORAL) 03-15 11:15: 29 Yes Take by mouth. [facility] hydrocortis one-iodoqui nL-aloe2 (ALCORTIN A) 2-1-1 % Gel 03-15 11:15: 29 Yes Apply to area(s). [facility] ondansetron 4 mg tablet 03-15 11:15: 29 Yes 4mg Take 4 mg by mouth every 8 (eight) hours as needed. [facility] mirabegron (MYRBETRIQ) 50 mg tablet 03-15 11:15: 29 Yes Take by mouth. [facility] liraglutide , weight loss, (SAXENDA) 3 mg/0.5 mL (18 mg/3 mL) PnIj 03-15 11:15: 29 Yes inject under the skin. [facility] cholecalcif kiki, vitamin D3, (D3-1999 ORAL) 03-15 11:15: 29 Yes Take by mouth. [facility] Biotin 2,500 mcg Cap 03-15 11:15: 29 Yes Take by mouth. [facility] BETAINE HCL ORAL 03-15 11:15: 29 Yes Take by mouth. [facility] multivitami n (DAILY VITAMIN ORAL) 03-15 11:15: 29 Yes Take by mouth. [facility] aspirin 81 mg chewable tablet 03-15 11:15: 29 Yes 81mg Take 81 mg by mouth daily. [facility] B-complex with vitamin C (B COMPLEX-C STRESS FORMULA ORAL) 03-15 11:15: 29 Yes Take by mouth. [facility] zinc sulfate (ZINC-15 ORAL) 03-15 11:15: 29 Yes Take by mouth. [facility] levocetiriz ine dihydrochlo ride (XYZAL ORAL) 03-15 11:15: 29 Yes Take by mouth. [facility] pseudoephed rine HCl (WAL-PHED D ORAL) 03-15 11:15: 29 Yes Take by mouth. [facility] oxymetazoli ne HCl (NOSE SPRAY NASAL) 03-15 11:15: 29 Yes Use in each nostril. [facility] elderberry fruit (ELDERBERRY ORAL) 03-15 11:15: 29 Yes Take by mouth. [facility] hydrocortis one-iodoqui nL-aloe2 (ALCORTIN A) 2-1-1 % Gel 03-15 11:15: 29 Yes Apply to area(s). [facility] ondansetron 4 mg tablet 03-15 11:15: 29 Yes 4mg Take 4 mg by mouth every 8 (eight) hours as needed. [facility] mirabegron (MYRBETRIQ) 50 mg tablet 03-15 11:15: 29 Yes Take by mouth. [facility] liraglutide , weight loss, (SAXENDA) 3 mg/0.5 mL (18 mg/3 mL) PnIj 03-15 11:15: 29 Yes inject under the skin. [facility] cholecalcif kiki, vitamin D3, (D3-2000 ORAL) 03-15 11:15: 29 Yes Take by mouth. [facility] Biotin 2,500 mcg Cap 03-15 11:15: 29 Yes Take by mouth. [facility] BETAINE HCL ORAL 03-15 11:15: 29 Yes Take by mouth. [facility] multivitami n (DAILY VITAMIN ORAL) 03-15 11:15: 29 Yes Take by mouth. [facility] aspirin 81 mg chewable tablet 03-15 11:15: 29 Yes 81mg Take 81 mg by mouth daily. [facility] B-complex with vitamin C (B COMPLEX-C STRESS FORMULA ORAL) 03-15 11:15: 29 Yes Take by mouth. [facility] zinc sulfate (ZINC-15 ORAL) 03-15 11:15: 29 Yes Take by mouth. [facility] levocetiriz ine dihydrochlo ride (XYZAL ORAL) 03-15 11:15: 29 Yes Take by mouth. [facility] pseudoephed rine HCl (WAL-PHED D ORAL) 03-15 11:15: 29 Yes Take by mouth. [facility] oxymetazoli ne HCl (NOSE SPRAY NASAL) 03-15 11:15: 29 Yes Use in each nostril. [facility] elderberry fruit (ELDERBERRY ORAL) 03-15 11:15: 29 Yes Take by mouth. [facility] hydrocortis one-iodoqui nL-aloe2 (ALCORTIN A) 2-1-1 % Gel 03-15 11:15: 29 Yes Apply to area(s). [facility] ondansetron 4 mg tablet 03-15 11:15: 29 Yes 4mg Take 4 mg by mouth every 8 (eight) hours as needed. [facility] mirabegron (MYRBETRIQ) 50 mg tablet 03-15 11:15: 29 Yes Take by mouth. [facility] liraglutide , weight loss, (SAXENDA) 3 mg/0.5 mL (18 mg/3 mL) PnIj 03-15 11:15: 29 Yes inject under the skin. [facility] cholecalcif kiki, vitamin D3, (D3-2000 ORAL) 03-15 11:15: 29 Yes Take by mouth. [facility] Biotin 2,500 mcg Cap 03-15 11:15: 29 Yes Take by mouth. [facility] BETAINE HCL ORAL 03-15 11:15: 29 Yes Take by mouth. [facility] multivitami n (DAILY VITAMIN ORAL) 03-15 11:15: 29 Yes Take by mouth. [facility] aspirin 81 mg chewable tablet 03-15 11:15: 29 Yes 81mg Take 81 mg by mouth daily. [facility] B-complex with vitamin C (B COMPLEX-C STRESS FORMULA ORAL) 03-15 11:15: 29 Yes Take by mouth. [facility] zinc sulfate (ZINC-15 ORAL) 03-15 11:15: 29 Yes Take by mouth. [facility] levocetiriz ine dihydrochlo ride (XYZAL ORAL) 03-15 11:15: 29 Yes Take by mouth. [facility] pseudoephed rine HCl (WAL-PHED D ORAL) 03-15 11:15: 29 Yes Take by mouth. [facility] oxymetazoli ne HCl (NOSE SPRAY NASAL) 03-15 11:15: 29 Yes Use in each nostril. [facility] elderberry fruit (ELDERBERRY ORAL) 03-15 11:15: 29 Yes Take by mouth. [facility] hydrocortis one-iodoqui nL-aloe2 (ALCORTIN A) 2-1-1 % Gel 03-15 11:15: 29 Yes Apply to area(s). [facility] ondansetron 4 mg tablet 03-15 11:15: 29 Yes 4mg Take 4 mg by mouth every 8 (eight) hours as needed. [facility] escitalopra m oxalate 10 mg tablet 0 03-14 00:00: 00 Yes [facility] escitalopra m oxalate 10 mg tablet 0 03-14 00:00: 00 Yes [facility] escitalopra m oxalate 10 mg tablet 0 03-14 00:00: 00 Yes [facility] escitalopra m oxalate 10 mg tablet 0 03-14 00:00: 00 Yes [facility] escitalopra m oxalate 10 mg tablet 0 03-14 00:00: 00 Yes [facility] escitalopra m oxalate 10 mg tablet 0 03-14 00:00: 00 Yes [facility] escitalopra m oxalate 10 mg tablet 0 03-14 00:00: 00 Yes [facility] escitalopra m oxalate 10 mg tablet 0 03-14 00:00: 00 Yes [facility] escitalopra m oxalate 10 mg tablet 0 03-14 00:00: 00 Yes [facility] escitalopra m oxalate 10 mg tablet 0 03-14 00:00: 00 Yes [facility] escitalopra m oxalate 10 mg tablet 0 03-14 00:00: 00 Yes [facility] escitalopra m oxalate 10 mg tablet 0 03-14 00:00: 00 Yes [facility] ALPRAZolam 0.5 mg tablet 0 -17 00:00: 00 Yes TAKE 0.5 TO 1 TABLET BY MOUTH DAILY NEEDED FOR ANXIETY [facility] ALPRAZolam 0.5 mg tablet 0 17 00:00: 00 Yes TAKE 0.5 TO 1 TABLET BY MOUTH DAILY NEEDED FOR ANXIETY [facility] ALPRAZolam 0.5 mg tablet 0 17 00:00: 00 Yes TAKE 0.5 TO 1 TABLET BY MOUTH DAILY NEEDED FOR ANXIETY [facility] ALPRAZolam 0.5 mg tablet 2021-0 17 00:00: 00 Yes TAKE 0.5 TO 1 TABLET BY MOUTH DAILY NEEDED FOR ANXIETY [facility] ALPRAZolam 0.5 mg tablet 0 17 00:00: 00 Yes TAKE 0.5 TO 1 TABLET BY MOUTH DAILY NEEDED FOR ANXIETY [facility] ALPRAZolam 0.5 mg tablet 0 17 00:00: 00 Yes TAKE 0.5 TO 1 TABLET BY MOUTH DAILY NEEDED FOR ANXIETY [facility] ALPRAZolam 0.5 mg tablet 0 17 00:00: 00 Yes TAKE 0.5 TO 1 TABLET BY MOUTH DAILY NEEDED FOR ANXIETY [facility] ALPRAZolam 0.5 mg tablet 0 17 00:00: 00 Yes TAKE 0.5 TO 1 TABLET BY MOUTH DAILY NEEDED FOR ANXIETY [facility] ALPRAZolam 0.5 mg tablet 0 17 00:00: 00 Yes TAKE 0.5 TO 1 TABLET BY MOUTH DAILY NEEDED FOR ANXIETY [facility] ALPRAZolam 0.5 mg tablet 0 -17 00:00: 00 Yes TAKE 0.5 TO 1 TABLET BY MOUTH DAILY NEEDED FOR ANXIETY [facility] ALPRAZolam 0.5 mg tablet 0 -17 00:00: 00 Yes TAKE 0.5 TO 1 TABLET BY MOUTH DAILY NEEDED FOR ANXIETY [facility] ALPRAZolam 0.5 mg tablet 0 -17 00:00: 00 Yes TAKE 0.5 TO 1 TABLET BY MOUTH DAILY NEEDED FOR ANXIETY [facility] simvastatin 20 mg tablet 2021-0 1-16 00:00: 00 Yes 20mg Take 20 mg by mouth every evening. [facility] simvastatin 20 mg tablet 2021-0 1-16 00:00: 00 Yes 20mg Take 20 mg by mouth every evening. [facility] simvastatin 20 mg tablet 2021-0 16 00:00: 00 Yes 20mg Take 20 mg by mouth every evening. [facility] simvastatin 20 mg tablet 2021-0 -16 00:00: 00 Yes 20mg Take 20 mg by mouth every evening. [facility] simvastatin 20 mg tablet 2021-0 -16 00:00: 00 Yes 20mg Take 20 mg by mouth every evening. [facility] simvastatin 20 mg tablet 2021-0 16 00:00: 00 Yes 20mg Take 20 mg by mouth every evening. [facility] simvastatin 20 mg tablet 2021-0 -16 00:00: 00 Yes 20mg Take 20 mg by mouth every evening. [facility] simvastatin 20 mg tablet 2021-0 -16 00:00: 00 Yes 20mg Take 20 mg by mouth every evening. [facility] simvastatin 20 mg tablet 2021-0 16 00:00: 00 Yes 20mg Take 20 mg by mouth every evening. [facility] simvastatin 20 mg tablet 2021-0 16 00:00: 00 Yes 20mg Take 20 mg by mouth every evening. [facility] simvastatin 20 mg tablet 2021-0 16 00:00: 00 Yes 20mg Take 20 mg by mouth every evening. [facility] simvastatin 20 mg tablet 2021-0 -16 00:00: 00 Yes 20mg Take 20 mg by mouth every evening. [facility] metoprolol succinate XL 25 mg 24 hr tablet 2021-0 03-01 00:00: 00 Yes 25mg Take 25 mg by mouth daily. [facility] metoprolol succinate XL 25 mg 24 hr tablet 2021-0 03-01 00:00: 00 Yes 25mg Take 25 mg by mouth daily. [facility] metoprolol succinate XL 25 mg 24 hr tablet 2021-0 03-01 00:00: 00 Yes 25mg Take 25 mg by mouth daily. [facility] metoprolol succinate XL 25 mg 24 hr tablet 03-01 00:00: 00 Yes 25mg Take 25 mg by mouth daily. [facility] metoprolol succinate XL 25 mg 24 hr tablet 03-01 00:00: 00 Yes 25mg Take 25 mg by mouth daily. [facility] metoprolol succinate XL 25 mg 24 hr tablet 03-01 00:00: 00 Yes 25mg Take 25 mg by mouth daily. [facility] metoprolol succinate XL 25 mg 24 hr tablet 03-01 00:00: 00 Yes 25mg Take 25 mg by mouth daily. [facility] metoprolol succinate XL 25 mg 24 hr tablet 03-01 00:00: 00 Yes 25mg Take 25 mg by mouth daily. [facility] metoprolol succinate XL 25 mg 24 hr tablet 03-01 00:00: 00 Yes 25mg Take 25 mg by mouth daily. [facility] metoprolol succinate XL 25 mg 24 hr tablet 03-01 00:00: 00 Yes 25mg Take 25 mg by mouth daily. [facility] metoprolol succinate XL 25 mg 24 hr tablet 03-01 00:00: 00 Yes 25mg Take 25 mg by mouth daily. [facility] metoprolol succinate XL 25 mg 24 hr tablet 03-01 00:00: 00 Yes 25mg Take 25 mg by mouth daily. [facility] hydrOXYchlo roQUINE 200 mg tablet 02-27 00:00: 00 Yes 200mg Take 200 mg by mouth 2 (two) times daily. [facility] hydrOXYchlo roQUINE 200 mg tablet 02-27 00:00: 00 Yes 200mg Take 200 mg by mouth 2 (two) times daily. [facility] hydrOXYchlo roQUINE 200 mg tablet 02-27 00:00: 00 Yes 200mg Take 200 mg by mouth 2 (two) times daily. [facility] hydrOXYchlo roQUINE 200 mg tablet 02-27 00:00: 00 Yes 200mg Take 200 mg by mouth 2 (two) times daily. [facility] hydrOXYchlo roQUINE 200 mg tablet 0 02-27 00:00: 00 Yes 200mg Take 200 mg by mouth 2 (two) times daily. [facility] hydrOXYchlo roQUINE 200 mg tablet 02-27 00:00: 00 Yes 200mg Take 200 mg by mouth 2 (two) times daily. [facility] hydrOXYchlo roQUINE 200 mg tablet 02-27 00:00: 00 Yes 200mg Take 200 mg by mouth 2 (two) times daily. [facility] hydrOXYchlo roQUINE 200 mg tablet 02-27 00:00: 00 Yes 200mg Take 200 mg by mouth 2 (two) times daily. [facility] hydrOXYchlo roQUINE 200 mg tablet 02-27 00:00: 00 Yes 200mg Take 200 mg by mouth 2 (two) times daily. [facility] hydrOXYchlo roQUINE 200 mg tablet 02-27 00:00: 00 Yes 200mg Take 200 mg by mouth 2 (two) times daily. [facility] hydrOXYchlo roQUINE 200 mg tablet 02-27 00:00: 00 Yes 200mg Take 200 mg by mouth 2 (two) times daily. [facility] hydrOXYchlo roQUINE 200 mg tablet 02-27 00:00: 00 Yes 200mg Take 200 mg by mouth 2 (two) times daily. [facility] DULoxetine 60 mg capsule 2020-02 00:00: 00 Yes 60mg Take 60 mg by mouth daily. [facility] DULoxetine 60 mg capsule 2020-02 00:00: 00 Yes 60mg Take 60 mg by mouth daily. [facility] DULoxetine 60 mg capsule 2020-02 00:00: 00 Yes 60mg Take 60 mg by mouth daily. [facility] DULoxetine 60 mg capsule 2020-02 00:00: 00 Yes 60mg Take 60 mg by mouth daily. [facility] DULoxetine 60 mg capsule 2020-02 00:00: 00 Yes 60mg Take 60 mg by mouth daily. [facility] DULoxetine 60 mg capsule 2020-02 00:00: 00 Yes 60mg Take 60 mg by mouth daily. [facility] DULoxetine 60 mg capsule 2020-02 00:00: 00 Yes 60mg Take 60 mg by mouth daily. [facility] DULoxetine 60 mg capsule 2020-02 00:00: 00 Yes 60mg Take 60 mg by mouth daily. [facility] DULoxetine 60 mg capsule 2020-02 00:00: 00 Yes 60mg Take 60 mg by mouth daily. [facility] DULoxetine 60 mg capsule 2020-02 00:00: 00 Yes 60mg Take 60 mg by mouth daily. [facility] DULoxetine 60 mg capsule 2020-02 00:00: 00 Yes 60mg Take 60 mg by mouth daily. [facility] DULoxetine 60 mg capsule 2020-02 00:00: 00 Yes 60mg Take 60 mg by mouth daily. [facility] Vital Signs Vital Name Observation Time Observation Value Comments S ource Body height 2021-07-11 17:30:00 167.6 cm [facility] Body weight 2021-07-11 17:30:00 86.183 kg [facility] BMI 2021-07-11 17:30:00 30.67 kg/m2 [facility] Procedures Procedure Date / Time Performed Performing Clinician Source AUTHORIZATION FOR RELEASE OF PHI 2022-03-13 06:01:00 Doctor Unassigned, Moquino [facility] MEDICATION CORRESPONDENCE 2021-08-22 05:01:00 Do ctor Unassigned, Moquino [facility] EXTERNAL PROVIDER RECORDS 2021-07-27 05:01:00 Do ctor Unassigned, Moquino [facility] Encounters Start Date/Time End Date/Time Encounter Type Admission Type Attending [facility] Care Facility Care Department Encounter ID Source 2020-03-01 12:00:00 Inpatient Huseyin Jamil [facility] DAYS [id number] [facility] 2022-07-30 00:00:00 2022-07-30 00:00:00 Tanisha Whitley [facility] MARIA GUADALUPE?[facility] 1.2840.114 350.1.13.10 4.2.7.2.686 [id number] [facility] 2022-03-14 00:00:00 2022-03-14 00:00:00 Telephone Sarah Leung [facility] [place]IA [place]?[facility] 1.2840.114 350.1.13.10 4.2.7.2.686 [id number] [facility] 2022-03-13 00:00:00 2022-03-13 00:00:00 Orders Only Doctor Unassigned, Moquino [facility] 1.2840.114 350.1.13.10 4.2.7.2.686 [id number] [facility] 2022-02-01 00:00:00 2022-02-01 00:00:00 Tanisha Whitley [facility] MARIA GUADALUPE?[facility] 1.284.114 350.1.13.10 4.2.7.2.686 [id number] [facility] 2021-12-26 00:00:00 2021-12-26 00:00:00 Tanisha Whitley [facility] MARIA GUADALUPE?[facility] 1.2840.114 350.1.13.10 4.2.7.2.686 [id number] [facility] 2021-12-21 00:00:00 2021-12-21 00:00:00 Tanisha Whitley [facility] MARIA GUADALU[place]?[facility] 1.2840.114 350.1.13.10 4.2.7.2.686 [id number] [facility] 2021-10-27 00:00:00 2021-10-27 00:00:00 Outpatient GC_SWHAWPRC _Lotze_P PRIV [facility] [id number] [facility] 2021-09-24 00:00:00 2021-09-24 00:00:00 [facility] 1.840.114 350.1.13.10 4.2.7.2.686 [id number] [facility] 2021-08-22 00:00:00 2021-08-22 00:00:00 Orders Only Doctor Unassigned, Moquino [facility] 1.840.114 350.1.13.10 4.2.7.2.686 [id number] [facility] 2021-08-16 00:00:00 2021-08-16 00:00:00 Refill Shahid [facility] 1.840.114 350.1.13.10 4.2.7.2.686 [id number] [facility] 2021-08-09 00:00:00 2021-08-09 00:00:00 Refill Shahid [facility] 1.840.114 350.1.13.10 4.2.7.2.686 [id number] [facility] 2021-07-27 00:00:00 2021-07-27 00:00:00 Orders Only Doctor Unassigned, Moquino [facility] 1.840.114 350.1.13.10 4.2.7.2.686 [id number] [facility] 2021-07-11 13:30:00 2021-07-11 13:45:00 Office Visit Valentina Whitley Sarah Leung [facility] 1.284.114 350.1.13.10 4.2.7.2.686 [id number] [facility] 2021-07-11 13:30:00 2021-07-11 13:30:00 Outpatient R SARAH LEUNG [facility] [id number] [facility] 2021-06-27 13:30:00 2021-06-27 13:30:00 Outpatient R FLAQUITA LEUNGIG [facility] [id number] [facility] 2021-06-16 00:00:00 2021-06-16 00:00:00 Refill Shahid [facility] MARIA GUADALUPE?[facility] 1.2.840.114 350.1.13.10 4.2.7.2.686 [id number] [facility] 2021-06-12 00:00:00 2021-06-12 00:00:00 [facility] 1.2.840.114 350.1.13.10 4.2.7.2.686 [id number] [facility] 2021-06-11 00:00:00 2021-06-11 00:00:00 [facility] 1.2.840.114 350.1.13.10 4.2.7.2.686 [id number] [facility] 2021-06-11 00:00:00 2021-06-11 00:00:00 Telephone [facility] 1.2.840.114 350.1.13.10 4.2.7.2.686 [id number] [facility] 2021-06-06 13:15:00 2021-06-06 13:30:00 Office Visit Shahid [facility]Count includes the [facility] 1..840.114 350.1.13.10 4.2.7.2.686 [id number] [facility] 2021-06-06 13:15:00 2021-06-06 13:15:00 Outpatient Quita [facility] [id number] [facility] 2021-06-06 13:15:00 2021-06-06 13:15:00 Outpatient Quita [facility] [id number] [facility] 2021-06-06 00:00:00 2021-06-06 00:00:00 Orders Only Doctor Unassigned, Moquino [facility] 1..840.114 350.1.13.10 4.2.7.2.686 [id number] [facility] 2021-05-30 00:00:00 2021-05-30 00:00:00 Refill Teja [facility] 1..840.114 350.1.13.10 4.2.7.2.686 [id number] [facility] 2021-05-29 13:00:00 2021-05-29 13:20:00 Urgent Care Teja [facility] 1..840.114 350.1.13.10 4.2.7.2.686 [id number] [facility] 2021-05-29 13:00:00 2021-05-29 13:00:00 [facility] [id number] [facility] 2021-05-29 00:00:00 2021-05-29 00:00:00 [facility] 1..840.114 350.1.13.10 4.2.7.2.686 [id number] [facility] 2021-04-15 00:00:00 2021-04-15 00:00:00 Refill Valentina Whitley [facility] 1.2.840.114 350.1.13.10 4.2.7.2.686 [id number] [facility] 2021-03-15 11:02:05 2021-03-15 23:59:00 Outpatient R MADHU [facility] [id number] [facility] 2021-03-15 11:02:05 2021-03-15 23:59:00 Hospital Encounter Flaquita Leungig Braeden [facility] 1.2840.114 350.1.13.10 4.2.7.2.686 [id number] [facility] 2021-03-15 15:30:00 2021-03-15 16:00:00 Office Visit Shahid [facility] 1.84.114 350.1.13.10 4.2.7.2.686 [id number] [facility] 2021-03-15 11:02:05 2021-03-15 11:02:05 Outpatient R MADHU SARAH [facility] [id number] [facility] 2021-03-15 00:00:00 2021-03-15 00:00:00 Orders Only Doctor Unassigned, Moquino [facility] 1.20.114 350.1.13.10 4.2.7.2.686 [id number] [facility] 2020-08-13 00:00:00 2020-08-13 00:00:00 Orders Only Doctor Unassigned, Moquino [facility] 1.20.114 350.1.13.10 4.2.7.2.686 [id number] [facility] Results Test Description Test Time Test Comments Results Result Co mments Source IS PATIENT ON ANTICOAGULANTS ? NINTERNATIONAL NORMAL [id number] 10:13:00* Test Item Value Reference Range Interpretation Comme nts INTERNATIONAL NORMAL RATIO (test code = INR) 1.06 The INR is to be used only for monitoring oral anticoagulanttherapy. INDICATION INR VALUE 1. Prophylaxis including high risk surgery 2.0 - 2.52. Deep venous thrombosis. Pulmonary embolism. Atrial fibrillation or bioprosthetic heart valves 2.0 - 3.03. Mechanical heart valves or recurrent systemic embolism. 3.0 - 3.5 IS PATIENT ON ANTICOAGULANTS ? NTHROMBOPLASTIN TIME [id number] 10:13:00* Test Item Value Reference Range Interpretation Comme nts THROMBOPLASTIN TIME PARTIAL (test code = PTT) 43.2 secs 22-38 H IS PATIENT ON ANTICOAGULANTS ? NCOVID 19 Asymptomatic IH [id number] 15:04:00* Test Item Value Reference Range Interpretation Comme nts COVID 19 Asymptomatic IH AG (test code = COVNONPUIAG) NEGATIVE NEGATIVE This test has be en authorized only for the detection ofproteins from SARS-CoV-2, not for any other viruses orpathogens. Negative results should be treated as presumptive andconfirmed with a molecular assay, if necessary for patientmanagement. Negative results do not rule out COVID-19 andshould not be used as the sole basis for treatment orpatient management decisions, including infection controldecisions. Negative results should be considered in thecontext of a patient's recent exposures, history and thepresence of clinical signs and symptoms consistent withCOVID-19. This test has not been FDA cleared or approved; the test hasbeen authorized by FDA under an Emergency Use Authorization(EUA) for use by laboratories certified under the CLIA thatmeet the requirements to perform moderate, high or waivedcomplexity tests. This test is authorized for use at thePoint of Care (POC), i.e., in patient care settingsoperating under a CLIA Certificate of Waiver, Certificate ofCompliance, or Certificate of Accreditation. This test is only authorized for the duration of thedeclaration that circumstances exist justifying theauthorization of emergency use of in vitro diagnostic testsfor detection and/or diagnosis of COVID-19 under Msgvttm826(b)(1) of the Act, 21 U.S.C. 360bbb-3(b)(1), unless theauthorization is terminated or revoked sooner. - XR CHEST 2 [id number] 13:12:00 [facility] 1970 Sex: F Patient Name: KERA NOBLE Unit No: [id number] EXAMS: CPT CODE: [id number] XR CHEST 2 V 58580 CLINICAL HISTORY: PREOP COMPARISON: NONE PA and lateral films of the chest demonstrate that heart size is normal. Lung garrison are clear. No evidence of pneumonia or congestive failure is seen. Regional skeletal structures demonstrate no acute abnormality. IMPRESSION: No evidence of pneumonia or congestivefailure is seen. at 1312 Reported and signed by: Bo Goodson MD CC: Huseyin Hannah MD Technologist: RT Alize Trnscrbd D/ (1312) Henrik Orig Print D/T: S: 02/28/2020 (1315) [facility] NAME: Mary NOBLE Radiology Department PHYS: Huseyin Jackson MD [address] : 1970 AGE: 50 SEX: F [place], [place] [address] [facility] #: [phone] EXAM DATE: 02/28/2020 STATUS: PRE [facility] FAX #: [phone] RAD NO: Page 1 Signed Report Notes Date/Time Note Provider Source 2020-03-01 13:54:00 [id number] [facility] [address], [place] [address] PATIENT NAME: KERA NOBLE ADMIT DATE: 03/01/20ACCOUNT NO: [id number] ROOM NO: AGE: 50 SEX: F ADMITTING PHYSICIAN: ATTENDING PHYSICIAN: Huseyin Hannah MD OPERATION DATE: 03/01/2020 PREOPERATIVE DIAGNOSIS: Stress incontinence. POSTOPERATIVE DIAGNOSIS: Stress incontinence. PROCEDURES PERFORMED:1. No tension sling ([place] Advantage Fit sling).2. Cystoscopy. SURGEON: Huseyin Hannah M.D. SPOOL FIXER: Jeanine Stevenson, nurse practitioner (medically necessary for surgicalassist). ANESTHESIA: General anesthesia. ESTIMATED BLOOD LOSS: 25 mL. COMPLICATIONS: None. PROCEDURE IN DETAIL: The patient was met in the preoperative holding area. Theintended surgical procedure was reviewed and all questions were answered to herstated satisfaction. She was taken to the operating room where she was givengeneral anesthesia. She was placed in a low lithotomy position with Allenstirrups and prepped and draped in usual sterile fashion. Time-out wasperformed. A catheter was placed inside her bladder, draining clear urine. Examination under anesthesia demonstrated pelvic supports previously describedwith no additional new findings noted. The urethral meatus was grasped with anAllis clamp. An Allis clamp was placed in the bladder neck. The area betweenthe clamps and surrounding tissue was infiltrated with lidocaine. A midlineincision was made with the Bovie and the cut edges were retracted laterally. Lateral dissection was carried out to the pubic rami on either side using sharpdissection. The first needle of the [place] [employer] sling wasplaced in the left side of dissection. Once its position was confirmed, it wasdirected laterally piercing the endopelvic fascia and then medially coursingalong the back of the pubic bone. It was brought through a stab incision madejust above the pubic bone, slightly off the midline. A segment of blue tubingattached to the mesh was left in place and the needle was withdrawn. It wasattached to tubing on the other end of the mesh and placed in the right side ofdissection. Once its position was confirmed, it was brought through to a stabincision in a manner as described above. Cystoscopy performed revealed noevidence of urethral, ureteral, or bladder injury. No masses, lesions, or PATIENT NAME: KERA NOBLE foreign bodies were seen within the bladder. The cystoscope was removed. Theright angle clamp was maintained between the mesh and mid urethra. Excess tapewas removed through the skin incisions. Once the tape was determined to be inappropriate position, the sleeves were cut and removed securing the mesh inplace. The right angle clamp demonstrated no evidence of undue tension of themesh against the mid urethra. Excess tape was cut at the level of the skinincisions. All incisions were confirmed to be hemostatic. The vaginal incisionwas closed with running suture of 2-0 Vicryl. Skin incisions were closed with4-0 chromic. A catheter was left out in anticipation of her voiding trial. Shewas awoken and taken to recovery room extubated and in good condition. Resultsreviewed with the patient's son at length who expressed his understanding. Dictated By: Huseyin Hannah MD WT: OP:F.AMADOU/MARYAN/SHODD: 03/01/2020 13:54:09DT: 03/01/2020 14:47:36Conf#: [id number]/DID#: [id number] Authenticated by Huseyin Hannah MD On 03/19/2020 07:05:48 AM at 0706 PATIENT NAME: KERA NOBLE [id number]:47:00F.[id number] lable for patient [id number]:06:18 [facility] 2020-03-01 13:22:00 [id number] [id number]/tYuQ0O6Cg4uYvaf92h wiLPDJxWU8YARqRUEH05FtrHwrZuAUN1NZ7388-66-15T11:2 2:00 [facility] ([facility])Brief Op NoteREPORT#:[id number] REPORT STATUS: SignedDATE:03/01/20 TIME: 1322 PATIENT: KERA NOBLE UNIT #: [id number]#: [id number] ROOM/BED:: 69 AGE: 50 SEX: F ATTEND: Huseyin Hannah AUTHOR: Jeanine Stevenson NP * ALL edits or amendments must be made on the electronic/computer document * Op/Inv Proc Note - BriefPre-procedure diagnosis:Stress incontinence Post-procedure diagnosis: same as pre procedure dxProcedures performed:1. TVT2. CystoPrimary Surgeon:Eugene HannahAssistant(s): Jenelle LiFindings:n/aComplications: noneEstimated blood loss in ml's: 25ccSpecimens removed/altered: none at 1322 RPT #:[id number] OF REPORT OPOperative [id number]:22:00F.[id number] ilable for patient gtqwXSZKPOIJUJIUAW2923-81-91F79:23:12 [facility] 2020-02-28 12:45:00 [id number] qTjQhlsTLBGvMRCh9mIOnZrlDEEtg IENLKZm5pkXbsA2e4aybKa/[id number]:4 5:[id number] [facility] [address], [place] [address] PATIENT NAME: KERA NOBLE ADMIT DATE: ACCOUNT NO: [id number] ROOM NO: AGE: 50 SEX: F ADMITTING PHYSICIAN: ATTENDING PHYSICIAN: Huseyin Hannah MD Order:[id number] Reason : PRE-OP /HX. SVT PAC Test Date/Time Stamp:FriFeb 28 2020 12:45:48Blood Pressure : / mmHGVent. Rate : 071 BPM Atrial Rate : 071 BPM P-R Int : 138 ms QRS Dur : 082 ms QT Int : 390 ms P-R-T Axes : 065 032 010 degrees QTc Int : 423 ms Normal sinus rhythmNonspecific T wave abnormalityAbnormal ECGNo previous ECGs availableConfirmed by SHEA MENCHACA MD ([id number]) on 02/29/2020 10:19:40 AM Referred By: Huseyin Hannah Confirmed by:SHEA MENCHACA MD at 1019 PATIENT NAME: KERA NOBLE .[id number] AVAvailable for patient bthrUSQXAKGWDWPTFF3212-56-07P15:20:01 [facility]
[2023-03-14 21:41] LABS: Absolute Lymphocytes (CBC) 2.6 K/uL (0.7-4.9); Lymphocytes % 46.3 % (15.3-44.8); MCV 91.5 fL (80-100); MPV 8.1 fL (7.6-11.3); Platelets 261 thou/uL (152-406); RBC Red Blood Cell Count 4.38 M/uL (3.86-4.86)
[2023-03-14 21:58] LABS: Albumin 3.7 g/dL (3.4-5.0); Bilirubin Total 0.4 mg/dL (0.2-1.0); Potassium 3.8 mEq/L (3.5-5.1)
--- NOTE | 2023-03-15 01:31 | EDPHYS ---
Physician Documentation [facility] Name: Felicia Arizmendi Age: 53 yrs Sex: Female : 1970 Arrival Date: 03/14/2023 Time: 21:01 Bed 2 Private MD: ED Physician Arash Simmons HPI: 03/14 21:30 This 53 yrs old Female presents to ER via Ambulatory with complaints of Abdominal Pain. cp 21:30 The patient presents with abdominal pain right upper lateral abdomen. cp 21:30 Onset: The symptoms/episode began/occurred for past several weeks. The symptoms radiate cp to right back. Associated signs and symptoms: Pertinent negatives: chest pain, constipation, diarrhea, fever, vomiting. The symptoms are described as intermittent. Severity of pain: in the emergency department the pain has improved mildly. Historical: - Allergies: 21:11 Keflex; rv 21:11 Ancef; rv 21:11 Amoxicillin; rv 21:11 Codeine; rv - PMHx: 21:11 bladder control; GERD; hot flashes; shingles; rv - PSHx: 21:11 tubal ligation (shingles); hysterectomy (shingles); rv - Immunization history:: Adult Immunizations up to date. - Social history:: Smoking status: Patient denies any tobacco usage or history of. ROS: 21:35 Constitutional: Negative for fever, cp 21:35 Abdomen/GI: Positive for abdominal pain, nausea, Negative for diarrhea, constipation, cp 21:35 Eyes: Negative for injury, pain, redness, and discharge, cp 21:35 Cardiovascular: Negative for chest pain, palpitations, 21:35 Respiratory: Negative for cough, shortness of breath, wheezing, 21:35 All other systems are negative, Exam: 21:40 Constitutional: The patient appears in no acute distress, alert, awake, non-toxic, well cp developed, well nourished, 21:40 Head/Face: Normocephalic, atraumatic. cp 21:40 Eyes: Periorbital structures: appear normal, Conjunctiva: normal, no exudate, no cp injection, Sclera: no appreciated abnormality, Lids and lashes: appear normal, bilaterally, 21:40 ENT: External ear(s): are unremarkable, Nose: is normal, Mouth: is normal, Posterior pharynx: Airway: no evidence of obstruction, patent, 21:40 Chest/axilla: Inspection: normal, 21:40 Cardiovascular: Rate: normal, Rhythm: regular, 21:40 Respiratory: the patient does not display signs of respiratory distress, Respirations: cp normal, no use of accessory muscles, no retractions, labored breathing, is not present, Breath sounds: are clear throughout, no decreased breath sounds, no stridor, no wheezing, 21:40 Abdomen/GI: Inspection: abdomen appears normal, Bowel sounds: active, all quadrants, Palpation: soft, in all quadrants, moderate abdominal tenderness, in the epigastric area and right upper quadrant, rebound tenderness, is not appreciated, involuntary guarding, is not appreciated, 21:40 Back: vertebral tenderness, is not appreciated, 21:40 Skin: cellulitis, is not appreciated, no rash present. 21:40 Neuro: Orientation: to person, place \T\ time. Mentation: is normal, Vital Signs: 21:08 BP 119 / 79; Pulse 72; Resp 17; Temp 98.3; Pulse Ox 100% ; Weight 87.09 kg; Height 5 rv ft. 6 in. ; Pain 3/10; 23:50 BP 172 / 103; Pulse 77; Resp 20; Pulse Ox 97% ; la4 03/15 00:00 BP 208 / 104; Pulse 74; Resp 18; Pulse Ox 98% ; la4 00:21 BP 205 / 103; Pulse 69; Resp 18; Pulse Ox 100% ; la4 01:15 BP 197 / 106; Pulse 75; Resp 18; Pulse Ox 100% ; la4 03/14 21:08 Body Mass Index 30.99 (87.09 kg, 167.64 cm) rv 03/14 21:08 Pain Scale: Adult rv [place] Coma Score: 01:51 Eye Response: spontaneous(4). Motor Response: obeys commands(6). Verbal Response: la4 oriented(5). Total: 15. MDM: 03/14 21:19 Patient medically screened. cp 03/15 01:30 Data reviewed: vital signs, nurses notes, lab test result(s), radiologic studies, CT cp scan, ultrasound. 01:30 Differential diagnosis: cholecystitis, Cholelithiasis, non-specific abd pain, cp pancreatitis, Peptic Ulcer Disease, Perf. Duodenal Ulcer, Perf. Gastric Ulcer. I considered the following discharge prescriptions or medication management in the emergency department Medications were administered in the Emergency Department. See MAR. Counseling: I had a detailed discussion with the patient and/or guardian regarding the historical points, exam findings, and any diagnostic results supporting the discharge/admit diagnosis, lab results, radiology results, to return to the emergency department if symptoms worsen or persist or if there are any questions or concerns that arise at home. Response to treatment: the patient's symptoms have mildly improved after treatment, and as a result, I will discharge patient. Special discussion: Based on the patient's Hx, exam, and Dx evaluation, there is no indication for emergent surgery or inpatient Tx. It is understood by the patient/guardian that if the Sx's persist or worsen they need to return immediately for re-evaluation. 03/14 21:21 Order name: CBC with Diff; Complete Time: 00:02 [facility] 03/14 21:21 Order name: CMP; Complete Time: 00:02 [facility] 03/14 21:21 Order name: Lipase; Complete Time: 00:02 [facility] 03/14 22:06 Order name: CT Abd/Pelvis - IV Contrast Only cp 03/15 00:02 Order name: US Abdomen Limited marlo 03/14 21:21 Order name: IV Saline Lock; Complete Time: 21:35 [facility] 03/14 21:21 Order name: Labs collected and sent; Complete Time: 21:35 [facility] 03/15 00:02 Order name: NPO; Complete Time: 00:36 marlo Administered Medications: No medications were administered Disposition Summary: 03/15/23 01:30 Discharge Ordered Notes: Location: Home cp Condition: Stable cp Diagnosis - Upper abdominal pain, unspecified cp Followup: cp - With: Del Pino MD - When: 5 - 6 days - Reason: Recheck today's complaints Discharge Instructions: - Discharge Summary Sheet cp - Abdominal Pain, Adult cp Forms: - Medication Reconciliation Form cp - Thank You Letter cp - Antibiotic Education cp - Prescription Opioid Use cp - Patient Portal Instructions cp - Leadership Thank You Letter cp Prescriptions: - Carafate 1 gram Oral tablet - take 1 tablet ORAL route 4 times per day take on an empty stomach prior to each cp meal, beginning on waking and last dose at bedtime. dissolve tablet in 6 oz warm water prior to ingestion; 100 tablet; Refills: 0, Product Selection Permitted - Protonix 40 mg Oral tablet, delayed release (enteric coated) - take 1 tablet ORAL route every 12 hours; 60 tablet; Refills: 0, Product cp Selection Permitted - Zofran 4 mg Oral Tablet - take 1 tablet ORAL route every 12 hours As needed; 20 tablet; Refills: 0, cp Product Selection Permitted Signatures: Dispatcher [employer] EDArash Butt, Arash Kiser MD, cha, Bernard Solorzano cp RN RN Sallie Milner RN RN la4 Corrections: (The following items were deleted from the chart) 03/14 21:13 21:11 Allergies: No Known Allergies; rv rv 03/16 01:46 01:45 Constitutional: The patient appears in no acute distress, alert, awake, cp non-toxic, well developed, well nourished, cp
--- NOTE | 2023-03-15 01:31 | ER ---
Nurse's Notes [facility] Name: Felicia Arizmendi Age: 53 yrs Sex: Female : 1970 Arrival Date: 03/14/2023 Time: 21:01 Bed 2 Private MD: Diagnosis: Upper abdominal pain, unspecified Presentation: 03/14 21:08 Chief complaint: Patient states: intermittent abd pain on the RUQ and heart burn x 3 rv wks. denies vomiting. denies constipation/diarrhea. Coronavirus screen: At this time, the client does not indicate any symptoms associated with coronavirus-19. Ebola Screen: No symptoms or risks identified at this time. Initial Sepsis Screen: Does the patient meet any 2 criteria? No. Patient's initial sepsis screen is negative. Does the patient have a suspected source of infection? No. Patient's initial sepsis screen is negative. Risk Assessment: Do you want to hurt yourself or someone else? Patient reports no desire to harm self or others. Onset of symptoms was March 14, 2023. 21:08 Method Of Arrival: Ambulatory 21:08 Acuity: EVE 3 rv Triage Assessment: 21:11 General: Appears comfortable, Behavior is calm, cooperative. Pain: Complains of pain in rv right upper quadrant. Neuro: Level of Consciousness is awake, alert, obeys commands, Oriented to person, place, time, situation. Cardiovascular: Capillary refill < 3 seconds Patient's skin is warm and dry. Respiratory: Airway is patent Respiratory effort is even, unlabored. GI: Abdomen is round non-distended. : No signs and/or symptoms were reported regarding the genitourinary system. Derm: Skin is intact. Historical: - Allergies: 21:11 Keflex; rv 21:11 Ancef; rv 21:11 Amoxicillin; rv 21:11 Codeine; rv - PMHx: 21:11 bladder control; GERD; hot flashes; shingles; rv - PSHx: 21:11 tubal ligation (shingles); hysterectomy (shingles); rv - Immunization history:: Adult Immunizations up to date. - Social history:: Smoking status: Patient denies any tobacco usage or history of. Screenin/27 01:57 [facility] ED Fall Risk Assessment (Adult) History of falling in the last 3 months, la4 including since admission No falls in past 3 months (0 pts) Confusion or Disorientation No (0 pts) Intoxicated or Sedated No (0 pts) Impaired Gait No (0 pts) Mobility Assist Device Used No (0 pt) Altered Elimination No (0 pt) Score/Fall Risk Level 0 - 2 = Low Risk Maintained a safe environment, Provided non-skid footwear, Hourly rounding (assess needs \T\ fall precautionary measures) done. Abuse screen: Denies threats or abuse. Denies injuries from another. Nutritional screening: No deficits noted. Tuberculosis screening: No symptoms or risk factors identified. Assessment: 03/14 21:30 Reassessment: No changes from previously documented assessment. Patient is alert, la4 oriented x 3, equal unlabored respirations, skin warm/dry/pink. Pt noted sitting up in chair at bedside, no report given. Pt care assumed at this time. No distress noted. 21:30 General: Appears in no apparent distress. Behavior is calm, cooperative, appropriate la4 for age. Pain: Complains of pain in right upper quadrant Pain does not radiate. Pain currently is 5 out of 10 on a pain scale. Quality of pain is described as pressure, Is continuous. Neuro: Ag Agitation-Sedation Scale (RASS): 0 - Alert and Calm Level of Consciousness is awake, alert, obeys commands, Oriented to person, place, time, situation. Cardiovascular: No deficits noted. Heart tones S1 S2 Capillary refill < 3 seconds is brisk Patient's skin is warm and dry. Rhythm is sinus rhythm. Respiratory: No deficits noted. Airway is patent Trachea midline Respiratory effort is even, unlabored, Respiratory pattern is regular, symmetrical, Breath sounds are clear bilaterally. GI: No deficits noted. Bowel sounds present X 4 quads. Abd is soft Abd is non tender in left upper quadrant, right lower quadrant and left lower quadrant Abdomen is tender to palpation in right upper quadrant. : No deficits noted. No signs and/or symptoms were reported regarding the genitourinary system. Derm: No deficits noted. No signs and/or symptoms reported regarding the dermatologic system. Vital Signs: 21:08 BP 119 / 79; Pulse 72; Resp 17; Temp 98.3; Pulse Ox 100% ; Weight 87.09 kg; Height 5 rv ft. 6 in. ; Pain 3/10; 23:50 BP 172 / 103; Pulse 77; Resp 20; Pulse Ox 97% ; la4 03/15 00:00 BP 208 / 104; Pulse 74; Resp 18; Pulse Ox 98% ; la4 00:21 BP 205 / 103; Pulse 69; Resp 18; Pulse Ox 100% ; la4 01:15 BP 197 / 106; Pulse 75; Resp 18; Pulse Ox 100% ; la4 03/14 21:08 Body Mass Index 30.99 (87.09 kg, 167.64 cm) rv 03/14 21:08 Pain Scale: Adult rv Vitals: 01:51 Cardiac Rhythm Assessment Regular Sinus rhythm. la4 [place] Coma Score: 01:51 Eye Response: spontaneous(4). Motor Response: obeys commands(6). Verbal Response: la4 oriented(5). Total: 15. ED Course: 03/14 21:01 Patient arrived in ED. jj6 21:11 Triage completed. rv 21:11 Arm band placed on right wrist. rv 21:19 Arash Wills PA is PHCP. cp 21:19 Arash Simmons MD is Attending Physician. cp 21:20 Sallie Clark RN is Primary Nurse. la4 21:35 CBC with Diff Sent. la4 21:35 CMP Sent. la4 21:35 Lipase Sent. la4 22:47 CT Abd/Pelvis - IV Contrast Only In Process Unspecified. EDMS 03/15 00:38 US Abdomen Limited Sent. la4 00:52 US Abdomen Limited In Process Unspecified. EDMS 01:30 Del Pino MD is Referral Physician. cp 01:57 Patient has correct armband on for positive identification. Placed in gown. Bed in low la4 position. Call light in reach. Side rails up X2. Provided Education on: Plan of care. Pulse ox on. NIBP on. 01:59 No provider procedures requiring assistance completed. IV discontinued, intact, la4 bleeding controlled, No redness/swelling at site. Pressure dressing applied. Administered Medications: No medications were administered Medication: 01:59 VIS not applicable for this client. la4 Outcome: :30 Discharge ordered by . cp 01:59 Discharged to home ambulatory, la4 01:59 Condition: stable 01:59 Discharge instructions given to patient, Instructed on discharge instructions, follow up and referral plans. Demonstrated understanding of instructions, follow-up care, 02:00 Patient left the ED. la4 Signatures: Dispatcher [employer] EDMS Arash Wills PA PA cp Vicente, Ronaldo RN RN Felicia Woods La'Rea RN RN la4 Corrections: (The following items were deleted from the chart) 03/14 21:13 21:11 Allergies: No Known Allergies; rv rv
[2023-03-15 04:26] VITALS: TEMP 98.3; O2SAT 100
[2023-03-15 04:42] VITALS: BP 197/106
--- NOTE | 2023-03-15 20:07 | RAD REPORT ---
EXAM DESCRIPTION: CT - Abdomen Pelvis W Contrast - 03/15/2023 7:36 am CLINICAL HISTORY: 53-year-old female with right upper quadrant abdominal pain. COMPARISON: None. TECHNIQUE: CT of the abdomen and pelvis was performed following intravenous administration of contra st. Oral contrast was not administered. Multiplanar reformatted images were provided. This exam was p erformed according to our departmental dose optimization program which includes use of automated expo sure control, adjustment of the mA and/or kV according to patient size and/or use of iterative recons truction technique. FINDINGS: Chest: Evaluation through the lung bases reveals no focal opacity, pleural effusion or pne umothorax. Heart size is within normal limits. No pericardial effusion. Small hiatal hernia. Atypical appearance is identified at the level of the gastric fundus with inverted appearance raising the possibility of sequela of prior fundoplication. Please correlate with patient surgical history. If no prior surgical history, follow-up consultation with GI evaluation may be considered. Edema of u ncertain etiology, less likely mass may be considered in the differential. Abdomen and pelvis: The liver, gallbladder, pancreas, spleen, bilateral kidneys and bilateral adrenal glands are within normal limits. The gallbladder is contracted limiting evaluation. The vessels are patent and normal in caliber. No abdominopelvic lymph nodes are noted to be pathologically enlarged by CT measurement criteria. The bowel is within normal limits without abnormal bowel wall thickness or bowel dilation. No free air. No free abdominopelvic fluid collections. The appendix is within normal limits. Mid appe ndix appendicolith is noted. The osseous structures are within normal limits. IMPRESSION: 1. No specific acute intra-abdominal findings are noted to suggest etiology of the pat ient's abdominal pain. 2. The gallbladder is contracted limiting evaluation. Further assessment with right upper quadrant sonography may be considered. 3. Atypical appearance is identified at the level of the gastric fundus with inverted appearance ra ising the possibility of sequela of prior fundoplication. Please correlate with patient surgical hist ory. If no prior surgical history, follow-up consultation with GI evaluation may be considered. Edema of uncertain etiology, less likely mass may be considered in the differential. Electronically signed by: Blanche Nova MD 03/14/2023 11:06 PM FOREST AIDE Due to temporary technical issues with the PACS/Fluency reporting system, reports are being signed by the in house radiologists without review as a courtesy to insure prompt reporting. The interpreting radiologist is fully responsible for the content of the report.
--- NOTE | 2023-03-15 20:09 | RAD REPORT ---
EXAM DESCRIPTION: US - Abdomen Exam Limited - 03/15/2023 12:51 am CLINICAL HISTORY: The patient is 53 years old and is Female; right upper flank pain TECHNIQUE: Real-time ultrasound of the right upper quadrant with image documentation. COMPARISON: CT the abdomen and pelvis March 14, 2023. FINDINGS: GALLBLADDER: The gallbladder is slightly contracted. There is no gallbladder wall thicke tata or pericholecystic fluid. No gallstones are seen. COMMON BILE DUCT: Unremarkable as visualized. No stones. No dilation. IMPRESSION: Contracted gallbladder. Electronically signed by: Tabby Lazaro MD 03/15/2023 01:07 AM DOCK WORKER Due to temporary technical issues with the PACS/Fluency reporting system, reports are being signed by the in house radiologists without review as a courtesy to insure prompt reporting. The interpreting radiologist is fully responsible for the content of the report.
== END 2023-03-15 02:00 | disposition home or self-care (01) ==
LOC: ER 21:01
DX: R10.11 Right upper quadrant pain (principal); K21.9 Gastro-esophageal reflux disease without esophagitis; Z88.1 Allergy status to other antibiotic agents; Z88.5 Allergy status to narcotic agent; Z88.0 Allergy status to penicillin
CPT/HCPCS: 85025; 36415; 83690; 80053; 74177; 76705; 99284; Q9967